=== PATIENT | male | born 1945 | race Caucasian/White ===

== ENCOUNTER 2018-02-09 23:01 | Emergency (ER) | payer MEDICARE, BC ==
[~2018-02-09] VITALS: Ht 165.1 cm; Wt 72.0 kg
[~2018-02-09 23:01] MED LIST: ACTO150T PO; AMBI12.5 PO; CALC1TAB87 PO; FERR325C PO; FLUT1SPR5 EACH NARE; FURO20TA PO; LIPI20TA PO; MACR100C2 PO; PRIL20TA2 PO; VESI5TAB2 PO; VITA-142 PO
[2018-02-10] VITALS: BP 146/85; PULSE 85; RESP 16; TEMP 98.2; O2SAT 98
== END 2018-02-10 00:32 | disposition left against medical advice (07) ==
LOC: NED 23:01
DX: R10.9 Unspecified abdominal pain (principal); R31.9 Hematuria, unspecified; Z53.21 Procedure and treatment not carried out due to patient leaving prior to being seen by health care provider
CPT/HCPCS: 99281